=== PATIENT | male | born 1985 | race Caucasian/White ===

== ENCOUNTER 2021-07-23 22:51 | Emergency (ER) | payer OTHER, SELFPAY ==
[2021-07-23 22:53] VITALS: BP 142/96; PULSE 62; RESP 18; TEMP 37.1; O2SAT 100
--- NOTE | 2021-07-24 01:08 | ED.EYEPROB ---
HPI - Eye Problem General Chief complaint: Eye Problems <LADY Calixto Last Filed: 07/24/21 01:21> Stated complaint: eye problem <LADY Calixto Last Filed: 07/24/21 01:21> Time Seen by Provider: 07/23/21 23:55 <LADY Calixto Last Filed: 07/24/21 01:21> History of Present Illness HPI Narrative: Patient is a 36-year-old male who presents emergency department with left eye irritation for 3 days. He states he blew on a table full of dust and a particle fell into his eye. Since then he has reported pain, irritation, photophobia. States he presented to the emergency department today because he was able to see a foreign body in his eye. Attempted removal with saline flush without success at home. Denies blurry vision, double vision, eye discharge. He does not wear contact lenses. <LADY Calixto Last Filed: 07/24/21 01:21> Related Data Home medications: Home Medications Medication Instructions Recorded Confirmed No Home Medications 10/11/20 <LADY Calixto Last Filed: 07/24/21 01:21> Allergies/adverse reactions: Allergies Allergy/AdvReac Type Severity Reaction Status Date / Time No Known Allergies Allergy Mild Unverified 08/07/08 11:40 <LADY Calixto Last Filed: 07/24/21 01:21> Review of Systems Review of Systems: Gen.: Denies fevers or chills Eyes: Reports eye pain, denies visual change ENT: Denies congestion Respiratory: Denies shortness of breath or cough CV: Denies chest pain or palpitations GI: Denies abdominal pain nausea, emesis or diarrhea denies burning, urgency, frequency or hematuria Musculoskeletal: Denies back pain or muscle pain Neuro: Denies numbness, tingling, weakness or focal weakness Skin: Denies rash Except as documented, all other systems reviewed and negative <LADY Calixto Last Filed: 07/24/21 01:21> All systems reviewed & are unremarkable except as noted in HPI and below <Rachael Stallworth PA-C - Last Filed: 07/24/21 01:21> [facility] Social History Social History: Social History (Updated 10/12/20 @ 14:04 by SN Fiorella) Smoking packs per day: 1 Smoking cigarettes per day: 20.0 Smoking status: Current every day smoker Tobacco type: cigarettes Alcohol intake: current <Rachael Stallworth PA-C - Last Filed: 07/24/21 01:21> Exam Narrative: Gen: Alert, oriented male Eyes: Patient has a small object on the medial aspect of his left eye overlying the iris. Extraocular movements intact. Pupils equal round and reactive. Adriane sign negative. Pulm: Respirations even and unlabored, symmetric thorax expansion, no audible stridor or visible cyanosis CV: Regular rate per telemetry GI: No distension, no voluntary/involuntary guarding Neuro: AOx4, moves all extremities without apparent difficulty or weakness, follows commands Skin: No jaundice, no visible bruising, rashes, lesions or wounds on exposed skin Psych: Normal mood/affect, insight/judgement good, adequate fund of knowledge, recent/remote memory intact <Rachael Stallworth PA-C - Last Filed: 07/24/21 01:21> Course [employer]/PA Physician Supervision For this patient encounter, I reviewed the [employer] or PA documentation, treatment plan, and medical decision making <Darinel Judd MD - Last Filed: 07/24/21 04:16> Vital Signs Vital signs: Vital Signs Temperature 98.8 F 07/23/21 22:53 Pulse Rate 62 07/23/21 22:53 Respiratory Rate 18 07/23/21 22:53 Blood Pressure 142/96 H 07/23/21 22:53 Pulse Oximetry 100 07/23/21 22:53 Temperature 98.8 F 07/23/21 22:53 Pulse Rate 62 07/23/21 22:53 Respiratory Rate 18 07/23/21 22:53 Blood Pressure 142/96 H 07/23/21 22:53 Pulse Oximetry 100 07/23/21 22:53 <Rachael Stallworth PA-C - Last Filed: 07/24/21 01:21> Vital Signs Temperature 98.8 F 07/23/21 22:53 Pulse Rate 6
== END 2021-07-24 00:29 | disposition home or self-care (01) ==
PROVIDERS: Emergency Provider Emergency Medicine
DX: T15.02XA Foreign body in cornea, left eye, initial encounter (principal); F17.210 Nicotine dependence, cigarettes, uncomplicated; X58.XXXA Exposure to other specified factors, initial encounter
CPT/HCPCS: 65220; 99283